=== PATIENT | female | born 1945 | race Two or more races ===

== ENCOUNTER 2021-07-13 22:18 | Emergency (ER) | payer OTHER ==
[~2021-07-13] VITALS: Ht 152.4 cm; Wt 51.7 kg
--- NOTE | 2021-07-13 22:45 | NUR ---
PATIENT BIBRA 89 C/O LEFT LOWER BACK SHARP PAIN RADIATING TO THE LEFT FLANK STARTED THIS MORNING. 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
[2021-07-13 23:15] LABS: CALCIUM, SERUM 9.3 mg/dL (8.5-10.1); CARBON DIOXIDE 29 mmol/L (21-32); CHLORIDE 96 mmol/L (98-107); CREATININE 0.9 mg/dL (0.6-1.3); GLUCOSE 120 mg/dL (74-106); POTASSIUM 4.2 mmol/L (3.5-5.1); SODIUM SERUM 133 mmol/L (136-145); UREA NITROGEN, BLOOD 11 mg/dL (7-18)
[2021-07-13 23:16] LABS: BASOPHILS % (AUTO) 0.4 % (0.0-2.0); EOSINOPHILS % (AUTO) 0.1 % (0.0-6.0); HEMATOCRIT 42 % (33-45); HEMOGLOBIN 14.2 g/dL (11.5-14.8); LYMPHOCYTES % (AUTO) 10.9 % (20.0-44.0); MEAN CORPUSCULAR HGB CONC 34 g/dl (31.0-36.0); MEAN CORPUSCULAR VOLUME 92 fL (82-100); MONOCYTES # (AUTO) 0.6 K/uL (0.1-1.30); MONOCYTES % (AUTO) 5.8 % (2.0-12.0); NEUTROPHILS # (AUTO) 7.8 K/uL (1.8-8.9); NEUTROPHILS % (AUTO) 82.8 % (43.0-81.0); PLATELET COUNT (AUTO) 361 K/uL (150-450); RED BLOOD CELL COUNT(AUTO) 4.52 MIL/uL (4.0-5.2); WHITE BLOOD COUNT (AUTO) 9.5 K/uL (4.3-11.0)
[2021-07-13 23:22] LABS: BILIRUBIN,DIRECT 0.1 mg/dL (0.0-0.2); BILIRUBIN,TOTAL 0.5 mg/dL (0.2-1.0)
[2021-07-13 23:23] LABS: ALBUMIN 3.8 g/dL (3.4-5.0); TOTAL PROTEIN, SERUM 7.6 g/dL (6.4-8.2)
[2021-07-13] MEDS ORDERED: IOHEXOL-350 100 ML VIAL IV ONE (23:24)
[2021-07-13] MEDS ORDERED: IV NS 0.9% 250 ML IV ONE (23:25)
[2021-07-13] MEDS ORDERED: BARIUM SULFATE 98% 135 ML SUSP.RECON PO ONE (23:25)
[2021-07-13] MEDS ORDERED: KETOROLAC TROMETHAMINE 15 MG/ML VIAL ONE (23:32)
[2021-07-13] MEDS: KETOROLAC TROMETHAMINE INJ 30 MG/ML VIAL IV ONE (23:34)
--- NOTE | 2021-07-13 23:34 | NUR ---
PT TAKEN TO RAD
--- NOTE | 2021-07-13 23:34 | NUR ---
PT LEFT FOR CT
[2021-07-13] MEDS ORDERED: ONDANSETRON HCL/PF 4 MG/2 ML VIAL ONE (23:59)
[2021-07-14] MEDS: MORPHINE SULFATE INJ 2 MG/ML DISP.SYRIN IV ONE ×3 (00:03→08:00)
[2021-07-14] MEDS: ONDANSETRON HCL/PF 4 MG/2 ML VIAL IV ONE (00:04)
--- NOTE | 2021-07-14 00:05 | NUR ---
PATIENT UNALBE TO PROVIDE URINE SAMPLE
[2021-07-14] MEDS: IV NS 0.9% 1,000 ML BAG IV ONE (00:57)
--- NOTE | 2021-07-14 01:38 | NUR ---
CALLED [facility] FOR CT/X RAY READ
--- NOTE | 2021-07-14 02:40 | NUR ---
URINE COLLECTED AND SENT TO LAB
[2021-07-14 03:14] LABS: BILIRUBIN,URINE NEGATIVE (NEGATIVE); COLOR,URINE YELLOW (YELLOW); LEUKOCYTE ESTERASE ,URINE TRACE (NEGATIVE); NITRITE, URINE NEGATIVE (NEGATIVE); PROTEIN,URINE NEGATIVE (NEGATIVE); UGLUCOSE NEGATIVE (NEGATIVE); UROBILINOGEN,URINE 0.2 EU/dL (0.2)
[2021-07-14] MEDS ORDERED: MORPHINE SULFATE INJ 4 MG/ML DISP.SYRIN ONE ×2 (03:39)
[2021-07-14] MEDS ORDERED: CEFTRIAXONE 1GM BAG (ER ONLY) 50 ML IV ONE (05:07)
[2021-07-14] MEDS: CEFTRIAXONE 1GM BAG (ER ONLY) 50 ML IV ONE (05:13)
--- NOTE | 2021-07-14 05:17 | NUR ---
CALLED [facility] FOR DR TO AWAITING A CALL BACK.
--- NOTE | 2021-07-14 05:51 | NUR ---
LAILA MONCADA ON THE PHONE Mariah CONWAY DR
[2021-07-14 06:06] VITALS: BP 129/69
--- NOTE | 2021-07-14 06:21 | NUR ---
TRANSFER INFO PER HARDY EPRP: PT GOT ACCEPTED AT [facility] BY [facility] BY PERRI BATRES TO ED AT 0715 # FOR REPORT: [phone]
[2021-07-14 06:32] LABS: BACTERIA,URINE None seen /HPF (None Seen); RBC,URINE 0-2 /HPF (0-2); SQUAMOUS EPITHELIAL CELL,UR Rare /HPF (None Seen); WBC,URINE 0-2 /HPF (0-3)
--- NOTE | 2021-07-14 06:44 | NUR ---
REPORT GIVEN TO DAVID JARQUIN
[2021-07-14] MEDS ORDERED: MORPHINE SULFATE INJ 2 MG/ML DISP.SYRIN ONE (07:57)
--- NOTE | 2021-07-14 08:13 | NUR ---
patient picked up by private ambulance in no distress going to [facility].
== END 2021-07-14 08:13 | disposition short-term general hospital (02) ==
LOC: ER 22:22
DX: N39.0 Urinary tract infection, site not specified (principal); Z20.822 Contact with and (suspected) exposure to COVID-19; K55.1 Chronic vascular disorders of intestine; E87.1 Hypo-osmolality and hyponatremia; G40.909 Epilepsy, unspecified, not intractable, without status epilepticus
CPT/HCPCS: 36415 ×2; 71045; 74174; 80048; 80076; 81001; 83605 ×2; 83690; 84484; 85025; 87086; 87426; 93005; 96361; 96365; 96375 ×2; 96376; 99285; C9803; J0696; J1885; J2270 ×3; J2405; J7050; Q9967